=== PATIENT | male | born 1955 | race Caucasian/White ===

== ENCOUNTER 2018-02-19 05:24 | Inpatient (IN) | payer BC, OTHER ==
[2018-02-11 08:46] LABS: HEMATOCRIT 42.6 % (42.0-52.0); HEMOGLOBIN 14.7 gm/dL (14.0-18.0); MCH 31.1 pg (26.0-34.0); MCHC 34.6 g/dL (28.0-37.0); MCV 89.9 fL (80.0-100.0); RBC 4.74 mil/uL (4.50-6.00); RDW 12.9 % (10.5-14.5); WBC 6.6 thou/uL (4.0-11.0)
[2018-02-11 08:51] LABS: URINE BILIRUBIN NEGATIVE (Negative); URINE BLOOD NEGATIVE (Negative); URINE CLARITY CLEAR; URINE COLOR YELLOW; URINE GLUCOSE-RANDOM* NEGATIVE (Negative); URINE KETONES NEGATIVE (Negative); URINE LEUKOCYTES-REFLEX NEGATIVE (Negative); URINE NITRITE-REFLEX NEGATIVE (Negative); URINE PROTEIN (DIPSTICK) NEGATIVE (Negative); URINE SPECIFIC GRAVITY <= 1.005 (1.005-1.035); URINE UROBILINOGEN 0.2 E.U./dl (0.2-1.0)
[2018-02-11 08:55] LABS: ALBUMIN 3.9 g/dL (3.4-5.0); CALCIUM 9.5 mg/dL (8.5-10.1); CREATININE 1.1 mg/dL (0.7-1.3); POTASSIUM 4.1 mmol/L (3.5-5.1)
[2018-02-19] VITALS (7 sets, daily range): BP systolic 108–169; BP diastolic 62–85
[~2018-02-19] VITALS: Ht 177.8 cm; Wt 93.4 kg
--- NOTE | ~2018-02-19 | O ---
[facility] [place] [address] OPERATIVE REPORT Name: WINSOME STEVENS Room #: 453-P [facility] IN M.R.#: [id number] Admission: 02/19/18 Attend Phys: Yoan Hodges MD Discharge: 02/20/18 Date of : 53 Report #: [id number] THIS REPORT FOR: //name// CC: Samy Hodges DATE OF SERVICE: 02/19/2018 PREOPERATIVE DIAGNOSIS: Left knee osteoarthritis. POSTOPERATIVE DIAGNOSIS: Left knee osteoarthritis. PROCEDURE: Left total knee arthroplasty with [employer] retirement assistant. SURGEON: Yoan Hodges MD. TRAFFIC OFFICER: Ana Pang PA-C. INDICATION FOR TRAFFIC OFFICER: Throughout the case, extensive retraction and manipulation of the knee was required. This was afforded to me by my retirement assistant. ANESTHESIA: LMA with an adductor canal block. IMPLANTS: Foley and Nephew size 6 Journey Oxinium posterior stabilized femur, size 5 tibia, size 9 highly constrained polyethylene and size 35 patella. TOURNIQUET TIME: 68 minutes. ESTIMATED BLOOD LOSS: 25 mL. COMPLICATIONS: None. SPECIMENS: None. CONDITION UPON LEAVING THE OPERATING ROOM: Stable. INDICATIONS FOR PROCEDURE: The patient is a 63-year-old gentleman with severe left knee osteoarthritis who had failed conservative measures for this and after discussion with him, he elected for left total knee arthroplasty. DESCRIPTION OF PROCEDURE: Risks, benefits, alternatives, complications were discussed in detail with the patient including but not limited to risk of anesthesia, risk of damage to nerves, arteries, blood vessels, risk for infection, bleeding, risk for continued knee pain, need for reoperation. Informed consent was obtained from the patient. Left knee was appropriately marked in the preoperative holding area. IV Ancef was given for preoperative [facility] [address] [place] [address] OPERATIVE REPORT Name: HILDAWINSOME Room #: 453-P [facility] IN M.R.#: [id number] Admission: 02/19/18 Attend Phys: Yoan Hodges MD Discharge: 02/20/18 Date of : 53 Report #: [id number] antibiotics. He was brought to the operating room and placed in supine position on operating room table. LMA anesthesia was induced without complication. Tourniquet was placed on the left thigh. Left lower extremity was prepped and draped in normal sterile fashion. Timeout was performed properly identifying the patient and procedure as well as the instrumentation and implants. All in the operating room were in agreement. Left lower extremity was exsanguinated, tourniquet was inflated. Tourniquet time was 68 minutes. Standard midline approach to knee was made with 10 blade through the skin. Dissection was taken down sharply to the fascia and deep flaps were developed medially and laterally. Fresh 10 blade was used to make a medial parapatellar arthrotomy and the knee was inspected. There was severe medial compartment osteoarthritic change with moderate patellofemoral and lateral involvement. ACL and PCL were removed sharply. Patella was everted, knee was flexed. Osteophytes were removed from the femur and the tibia. Reference pins were then placed in the femur and the tibia and then, a knee was then digitally mapped using the NavInfoVista surgical navigation system. Intraoperative plain was made and sized to be a size 6 for the femur and a size 5 for the tibia. After acceptance of the plan, distal femoral cut was then made with the Navio bur. The 5-in-1 size 6 Journey cutting block was pinned in place on the femur and the femoral cuts were made. Knee was then hyperflexed. The remainder of the medial and lateral meniscus was removed with Bovie cautery. The tibial resection guide was then pinned in place using Navio system and tibial resection was made. After this flexion and extension gaps were checked and found to have good balance in flexion and extension with a size 9 spacer. Tibia was sized, found to be a size 5. Size 5 tibial trial was placed and punched. Size 6 femoral trial was placed and the box cut was made. This was then trialed with size 9 polyethylene and digitally and manually tested. It was found to have good balance medially in flexion and extension laterally with some loose compared to the medial compartment. It was felt that this is likely due to an inadvertent partial transection of the popliteus tendon. It was felt this could be made up for with a highly constrained liner. The 9 mm was taken off the posterior surface of the patella and a size 35 patellar button was placed. Knee was taken through range of motion, found to be stable, found to have good patellar tracking. After this, trial components were removed. Bony ends were thoroughly irrigated with normal saline. A final size 5 tibia, size 6 Journey Oxinium posterior stabilized femur and a size 35 patella were cemented in place using standard cementation techniques. While the cement cured, a periarticular injection consisting of morphine, ropivacaine, epinephrine and Toradol was placed around the knee joint. After the cement cured, the tourniquet was deflated. Hemostasis was obtained with Bovie cautery. Final size 9 highly constrained polyethylene was placed. A gram of vancomycin was placed deep in the joint. The fascia was closed with 0 Vicryl, skin was closed with 2-0 Vicryl, 3-0 Monocryl. Dermabond and a HAKAN dressing was [address] [address] OPERATIVE REPORT Name: WINSOME STEVENS Room #: 453-P [facility] IN M.R.#: [id number] Admission: 02/19/18 Attend Phys: Yoan Hodges MD Discharge: 02/20/18 Date of : 53 Report #: [id number] applied. The patient tolerated this procedure well and went to recovery room under care of anesthesia postoperatively. <ELECTRONICALLY SIGNED> By: Yoan Hodges MD 02/27/18 1434 1134 [id number] Yoan Hodges MD /nt
--- NOTE | ~2018-02-19 | EKG ---
[address] [address] ELECTROCARDIOGRAM REPORT Name: WINSOME STEVENS Room #: PRE IN [facility]#: [id number] Admission: Attend Phys: Yoan Hodges MD Discharge: Date of : 53 Report #: [id number] THIS REPORT FOR: //name// [facility] Test Date: 2018-02-11 Test Time: 08:39:08 Pat Name: WINSOME STEVENS Department: Room: Gender: [employer] Resource Internship: Brady POON : 1955 Requested By: Yoan Hodges Order Number: [id number] MD: Clifford Little Measurements Intervals [place] Rate: 77 P: 50 VA: 135 QRS: 16 QRSD: 111 T: 38 QT: 408 QTc: 462 Interpretive Statements Sinus rhythm No previous ECG available for comparison Electronically Signed On 02-15-2018 14:36:10 CDT by Clifford Little [email or web address] <ELECTRONICALLY SIGNED> By: Clifford Little MD 02/15/18 1436 [id number] [id number] Clifford Little MD /BRENDA
[~2018-02-19 05:24] MED LIST: CLARITIN10 MG PO; CO Q-10100 MG PO; FLOMAX0.4 MG PO; IBUPROFEN 200200 M1 PO; LIPITOR10 MG PO; PROSCAR 5MG TABL5 MG PO
[2018-02-20 00:15] VITALS: BP 131/75
[2018-02-20 04:15] VITALS: BP 116/61
[2018-02-20 06:20] LABS: HEMATOCRIT 34.3 % (42.0-52.0); HEMOGLOBIN 11.9 gm/dL (14.0-18.0); MCH 31.1 pg (26.0-34.0); MCHC 34.6 g/dL (28.0-37.0); MCV 89.7 fL (80.0-100.0); RBC 3.82 mil/uL (4.50-6.00); RDW 13.4 % (10.5-14.5); WBC 13.7 thou/uL (4.0-11.0)
[2018-02-20 08:06] LABS: CALCIUM 8.8 mg/dL (8.5-10.1); CREATININE 1.1 mg/dL (0.7-1.3); MAGNESIUM 2.3 mg/dL (1.8-2.4); POTASSIUM 4.2 mmol/L (3.5-5.1)
[2018-02-20] MEDS ORDERED: NEURONTIN 300300 M1 PO (08:29)
[2018-02-20] MEDS ORDERED: COLACE100 MG PO (08:29)
[2018-02-20] MEDS ORDERED: LIPITOR10 MG PO (08:29)
[2018-02-20 08:40] VITALS: BP 115/65
[2018-02-20 10:23] VITALS: BP 116/61
[2018-02-20] MEDS ORDERED: XARELTO10 MG PO (13:23)
== END 2018-02-20 15:12 | disposition home or self-care (01) | DRG 470 ==
LOC: 4W 05:24 → TBA 05:24 → PRE 06:20 → 4W 15:07 → PRE 15:24 → ENTRNSPT 02-20 15:04 → EDTRNSPT 02-20 15:04 → EDTRNSPTSTS 02-20 15:06 → 4W 02-20 15:12
PROVIDERS: Orthopaedic Surgery
PROC: 0SRD069 Replacement of Left Knee Joint with Oxidized Zirconium on Polyethylene Synthetic Substitute, Cemented, Open Approach (ICD-10-PCS; principal; 2018-02-19)
DX: M17.12 Unilateral primary osteoarthritis, left knee (principal); E78.5 Hyperlipidemia, unspecified; K21.9 Gastro-esophageal reflux disease without esophagitis; G47.33 Obstructive sleep apnea (adult) (pediatric); Z96.651 Presence of right artificial knee joint; N40.0 Benign prostatic hyperplasia without lower urinary tract symptoms; Z86.718 Personal history of other venous thrombosis and embolism; Z86.711 Personal history of pulmonary embolism; Z79.899 Other long term (current) drug therapy; Z87.891 Personal history of nicotine dependence
CPT/HCPCS: 10047; 50010; 50101; 50415; 50954; 51130; 51225; 51771; 53000; 53078; 54118; 55372; 56527; 56528; 57095; 57103; 57109; 57110; 57113; 57127; 57180; 62110; 62900; 64042; 70005